=== PATIENT | female | born 1970 | race Caucasian/White ===

== ENCOUNTER 2020-12-01 08:39 | Outpatient (CLI) | payer BC | END 2020-12-01 08:40 | disposition home or self-care (01) | LOC: CSHMAMMO 08:39 | PROVIDERS: ATTEND Family Medicine | DX: Z12.31 Encounter for screening mammogram for malignant neoplasm of breast (principal) | CPT/HCPCS: 77063; 77067 ==

== ENCOUNTER 2022-01-12 12:24 | Outpatient (CLI) | payer BC | END 2022-01-12 12:25 | disposition home or self-care (01) | LOC: CSHMAMMO 12:24 | PROVIDERS: ATTEND Family Medicine | DX: Z12.31 Encounter for screening mammogram for malignant neoplasm of breast (principal) | CPT/HCPCS: 77063; 77067 ==

== ENCOUNTER 2024-03-19 10:11 | Outpatient (CLI) | payer BC | END 2024-03-19 10:12 | disposition home or self-care (01) | LOC: CSHMAMMO 10:11 | PROVIDERS: ATTEND Family Medicine | DX: Z12.31 Encounter for screening mammogram for malignant neoplasm of breast (principal) | CPT/HCPCS: 77063; 77067 ==